=== PATIENT | male | born 2000 | race Caucasian/White ===

== ENCOUNTER 2022-01-29 13:31 | Emergency (ER) | payer OTHER ==
[~2022-01-29] VITALS: Ht 182.9 cm; Wt 58.5 kg
--- NOTE | 2022-01-29 15:00 | NUR ---
PLUMBER MAINTENANCE AT BEDSIDE FOR XRAY
--- NOTE | 2022-01-29 15:12 | NUR ---
RAPID COVID AND RAPID FLU SWABS COLLECTED AND SENT TO LAB
[2022-01-29] MEDS ORDERED: BENZ-13 PO (16:44)
[2022-01-29 16:54] VITALS: BP 132/88
--- NOTE | 2022-01-29 16:54 | NUR ---
Patient discharged to home in stable condition. Written and verbal after care instructions given. Patient verbalizes understanding of instruction.
== END 2022-01-29 16:55 | disposition home or self-care (01) ==
LOC: ER 13:31
DX: J40 Bronchitis, not specified as acute or chronic (principal); Z20.822 Contact with and (suspected) exposure to COVID-19
CPT/HCPCS: 99284; 71045; 87426; 87804; C9803